=== PATIENT | female | born 1985 | race African-American/Black ===

== ENCOUNTER 2017-12-23 08:41 | Emergency (ER) | payer OTHER ==
[~2017-12-23] VITALS: Ht 160 cm; Wt 65.0 kg
[~2017-12-23 08:41] MED LIST: ALBU2.5V13 IH
[2017-12-23 09:38] LABS: BASOPHILS % 0.6 % (0.0-2.0); EOSINOPHILS % 1.1 % (0.0-5.0); HEMATOCRIT. 39.3 % (36.0-48.0); HEMOGLOBIN. 13.3 g/dL (12.0-16.0); LYMPHOCYTES % 18.3 % (20.0-50.0); MEAN CORPUSCULAR HEMOGLOBIN 28.7 pg (28.0-32.0); MEAN CORPUSCULAR VOLUME 85.1 fL (81.0-99.0); MEAN PLATELET VOLUME 9.3 fl (7.4-10.4); MONOCYTES % 8.4 % (2.0-8.0); NEUTROPHILS % 71.6 % (40.0-76.0); PLATELET 172 x1000/uL (130-400); RED BLOOD CELL COUNT 4.62 mill/uL (4.2-5.4); RED CELL DISTRIBUTION WIDTH 12.9 % (11.6-14.6)
[2017-12-23 09:44] LABS: CHLORIDE 104 mEq/L (98-107)
[2017-12-23] MEDS ORDERED: ONDANSETRON HCL 4MG/2ML VIAL IV STA (09:46)
[2017-12-23] MEDS ORDERED: SODIUM CHLORIDE 0.9% 1,000 ML IV ONE (09:46)
[2017-12-23 09:53] LABS: HCG SCREEN POSITIVE
[2017-12-23] MEDS ORDERED: FAMOTIDINE 20MG/2ML VIAL IV ONE (10:00)
[2017-12-23 10:05] LABS: CLARITY URINE CLEAR (CLEAR); COLOR URINE DARK YELLOW (YELLOW); KETONES URINE 2+ (NEGATIVE); LEUKOCYTE ESTERASE URINE TRACE (NEGATIVE); NITRITE URINE NEGATIVE (NEGATIVE); OCCULT BLOOD URINE NEGATIVE (NEGATIVE); PH URINE 7.5 (4.5-8.0); PROTEIN URINE TRACE (NEGATIVE); SPECIFIC GRAVITY URINE 1.031 (1.005-1.030)
[2017-12-23 12:09] VITALS: BP 108/74
== END 2017-12-23 12:16 | disposition home or self-care (01) ==
LOC: ER 08:57
DX: O23.41 Unspecified infection of urinary tract in pregnancy, first trimester (principal); O26.891 Other specified pregnancy related conditions, first trimester; R10.9 Unspecified abdominal pain; Z3A.08 8 weeks gestation of pregnancy; R11.2 Nausea with vomiting, unspecified
CPT/HCPCS: 36415; 76801; 76817; 80053; 81003; 81025; 83690; 84702; 84703; 85025; 96361; 96374; 96375; 99285; J2405; J3490; J7030

== ENCOUNTER 2018-01-10 15:53 | Emergency (ER) | payer OTHER ==
[~2018-01-10] VITALS: Ht 165.1 cm; Wt 62.0 kg
[2018-01-10] MEDS ORDERED: SODIUM CHLORIDE 0.9% 1,000 ML IV ONE (16:22)
[2018-01-10] MEDS ORDERED: METOCLOPRAMIDE HCL 10MG/2ML VIAL IV ONE (16:30)
[2018-01-10 17:04] LABS: CHLORIDE 103 mEq/L (98-107)
[2018-01-10 17:05] LABS: BASOPHILS % 0.2 % (0.0-2.0); EOSINOPHILS % 0.5 % (0.0-5.0); HEMATOCRIT. 37.1 % (36.0-48.0); HEMOGLOBIN. 12.4 g/dL (12.0-16.0); MEAN CORPUSCULAR HEMOGLOBIN 28.5 pg (28.0-32.0); MEAN PLATELET VOLUME 9.2 fl (7.4-10.4); MONOCYTES % 7.2 % (2.0-8.0); NEUTROPHILS % 77.1 % (40.0-76.0); PLATELET 189 x1000/uL (130-400); RED BLOOD CELL COUNT 4.37 mill/uL (4.2-5.4); RED CELL DISTRIBUTION WIDTH 12.6 % (11.6-14.6)
[2018-01-10 17:27] LABS: B-HCG QUANTITATIVE 133485 mIU/mL (<3)
[2018-01-10 17:45] LABS: CLARITY URINE CLEAR (CLEAR); COLOR URINE YELLOW (YELLOW); KETONES URINE 4+ (NEGATIVE); LEUKOCYTE ESTERASE URINE NEGATIVE (NEGATIVE); NITRITE URINE NEGATIVE (NEGATIVE); OCCULT BLOOD URINE NEGATIVE (NEGATIVE); PH URINE 5.5 (4.5-8.0); PROTEIN URINE NEGATIVE (NEGATIVE); SPECIFIC GRAVITY URINE 1.033 (1.005-1.030)
[2018-01-10 18:40] VITALS: BP 112/66
== END 2018-01-10 19:00 | disposition home or self-care (01) ==
LOC: ER 16:05
DX: O21.0 Mild hyperemesis gravidarum (principal); O26.851 Spotting complicating pregnancy, first trimester; O26.891 Other specified pregnancy related conditions, first trimester; R10.30 Lower abdominal pain, unspecified; O99.511 Diseases of the respiratory system complicating pregnancy, first trimester; J45.909 Unspecified asthma, uncomplicated; Z3A.01 Less than 8 weeks gestation of pregnancy
CPT/HCPCS: 36415; 76801; 80053; 81003; 84702; 85025; 96361; 96374; 99285; J2765; J7030; Z7610

== ENCOUNTER 2018-01-12 23:41 | Emergency (ER) | payer OTHER ==
[~2018-01-12] VITALS: Ht 165.1 cm; Wt 68.0 kg
[2018-01-13] MEDS ORDERED: ONDANSETRON 4MG ODT PO ONE (02:45)
[2018-01-13] MEDS ORDERED: ACETAMINOPHEN 325MG TABLET PO ONE (02:45)
[2018-01-13 03:42] VITALS: BP 102/50
== END 2018-01-13 03:39 | disposition home or self-care (01) ==
LOC: ER 23:41
DX: O20.0 Threatened abortion (principal); O26.891 Other specified pregnancy related conditions, first trimester; M54.2 Cervicalgia; R11.0 Nausea; J45.909 Unspecified asthma, uncomplicated; Z98.890 Other specified postprocedural states; Z3A.08 8 weeks gestation of pregnancy; V43.62XA Car passenger injured in collision with other type car in traffic accident, initial encounter; Y93.89 Activity, other specified; Y92.488 Other paved roadways as the place of occurrence of the external cause
CPT/HCPCS: 76801; 81025; 99284; Q0162

== ENCOUNTER 2018-02-28 10:36 | Emergency (ER) | payer OTHER ==
[~2018-02-28] VITALS: Ht 165.1 cm; Wt 71.0 kg
[2018-02-28 12:37] LABS: CLARITY URINE CLOUDY (CLEAR); COLOR URINE YELLOW (YELLOW); KETONES URINE NEGATIVE (NEGATIVE); LEUKOCYTE ESTERASE URINE NEGATIVE (NEGATIVE); NITRITE URINE NEGATIVE (NEGATIVE); OCCULT BLOOD URINE NEGATIVE (NEGATIVE); PROTEIN URINE NEGATIVE (NEGATIVE); SPECIFIC GRAVITY URINE 1.019 (1.005-1.030); UROBILINOGEN URINE 0.2 E.U./dL (0.2-1.0)
[2018-02-28 14:54] LABS: CHLORIDE 104 mEq/L (98-107)
[2018-02-28 15:00] LABS: BASOPHILS % 0.2 % (0.0-2.0); EOSINOPHILS % 0.7 % (0.0-5.0); HEMATOCRIT. 32.9 % (36.0-48.0); HEMOGLOBIN. 11.2 g/dL (12.0-16.0); LYMPHOCYTES % 16.1 % (20.0-50.0); MEAN CORPUSCULAR HEMOGLOBIN 29.2 pg (28.0-32.0); MEAN CORPUSCULAR VOLUME 85.5 fL (81.0-99.0); MEAN PLATELET VOLUME 9.1 fl (7.4-10.4); MONOCYTES % 7.2 % (2.0-8.0); NEUTROPHILS % 75.8 % (40.0-76.0); PLATELET 147 x1000/uL (130-400); RED BLOOD CELL COUNT 3.85 mill/uL (4.2-5.4)
[2018-02-28 15:02] VITALS: BP 124/69
[2018-02-28 15:19] LABS: B-HCG QUANTITATIVE 24422 mIU/mL (<3)
== END 2018-02-28 15:05 | disposition home or self-care (01) ==
LOC: ER 10:53
DX: O00.81 Other ectopic pregnancy with intrauterine pregnancy (principal); O99.512 Diseases of the respiratory system complicating pregnancy, second trimester; J45.909 Unspecified asthma, uncomplicated; Z98.890 Other specified postprocedural states; Z3A.16 16 weeks gestation of pregnancy
CPT/HCPCS: 36415; 76805; 80053; 81003; 81025; 84702; 85025; 99285

== ENCOUNTER 2018-05-18 19:47 | Observation (INO) | payer OTHER ==
[2018-05-18] MEDS ORDERED: LACTATED RINGERS 1,000 ML IV SCH (20:12)
[2018-05-18] MEDS ORDERED: PREN1TAB78 MT (20:14)
[2018-05-18 20:51] LABS: CLARITY URINE CLOUDY (CLEAR); COLOR URINE YELLOW (YELLOW); KETONES URINE NEGATIVE (NEGATIVE); LEUKOCYTE ESTERASE URINE NEGATIVE (NEGATIVE); NITRITE URINE NEGATIVE (NEGATIVE); OCCULT BLOOD URINE NEGATIVE (NEGATIVE); PROTEIN URINE TRACE (NEGATIVE); SPECIFIC GRAVITY URINE 1.018 (1.005-1.030); UROBILINOGEN URINE 0.2 E.U./dL (0.2-1.0)
[2018-05-18] MEDS ORDERED: ACETAMINOPHEN 500MG TABLET PO NR (21:00)
== END 2018-05-18 22:00 | disposition home or self-care (01) ==
LOC: L&D 19:47
PROVIDERS: ADMIT Obstetrics & Gynecology; ATTEND Obstetrics & Gynecology
DX: O62.9 Abnormality of forces of labor, unspecified (principal); O26.892 Other specified pregnancy related conditions, second trimester; M54.9 Dorsalgia, unspecified; Z3A.28 28 weeks gestation of pregnancy
CPT/HCPCS: 81003; 99281; G0378; 96360; 96361; J7120

== ENCOUNTER 2018-06-04 23:51 | Observation (INO) | payer OTHER ==
[~2018-06-04] VITALS: Ht 165.1 cm; Wt 79.8 kg
[~2018-06-04 23:51] MED LIST changes: +PREN1TAB78 MT
[2018-06-05] MEDS ORDERED: LACTATED RINGERS 1,000 ML IV ONE (00:45)
[2018-06-05] MEDS ORDERED: TERBUTALINE SULFATE 1MG/ML VIAL SUBCUT PRN (00:45)
[2018-06-05] MEDS ORDERED: CEFAZOLIN 2,000 MG in DEXT 5% WATER 100 ML IV NR (00:45)
[2018-06-05 00:52] LABS: CLARITY URINE CLOUDY (CLEAR); COLOR URINE YELLOW (YELLOW); KETONES URINE NEGATIVE (NEGATIVE); LEUKOCYTE ESTERASE URINE NEGATIVE (NEGATIVE); NITRITE URINE NEGATIVE (NEGATIVE); OCCULT BLOOD URINE NEGATIVE (NEGATIVE); PH URINE 6.5 (4.5-8.0); PROTEIN URINE NEGATIVE (NEGATIVE); SPECIFIC GRAVITY URINE 1.015 (1.005-1.030)
[2018-06-05 01:02] LABS: *AMPHETAMINES SCREEN URINE NEGATIVE (NEGATIVE); *BARBITURATES SCREEN URINE NEGATIVE (NEGATIVE); *BENZODIAZEPINES SCREEN URINE NEGATIVE (NEGATIVE); *COCAINE SCREEN URINE NEGATIVE (NEGATIVE); METHADONE URINE SCREEN NEGATIVE (NEGATIVE)
[2018-06-05 01:03] LABS: CANNABINOID URINE SCREEN NEGATIVE (NEGATIVE); OPIATES URINE SCREEN NEGATIVE (NEGATIVE); PHENCYCLIDINE URINE SCREEN NEGATIVE (NEGATIVE)
== END 2018-06-05 03:30 | disposition home or self-care (01) ==
LOC: L&D 23:51
PROVIDERS: ADMIT Obstetrics & Gynecology; ATTEND Obstetrics & Gynecology
DX: O62.9 Abnormality of forces of labor, unspecified (principal); Z3A.31 31 weeks gestation of pregnancy
CPT/HCPCS: 80305; 81003; 96365; 96372; 99281; G0378; J0690; J3105; 96360; J7060

== ENCOUNTER 2018-06-21 06:45 | Observation (INO) | payer OTHER ==
[~2018-06-21] VITALS: Ht 165.1 cm; Wt 82.6 kg
[2018-06-21] MEDS ORDERED: [UNRECOGNIZED DRUG - REMARK] IV ONE ×2 (07:30)
[2018-06-21] MEDS ORDERED: LACTATED RINGERS 1,000 ML IV SCH (07:30)
[2018-06-21] MEDS ORDERED: ONDANSETRON HCL 4MG/2ML INJ IV NR (07:30)
[2018-06-21] MEDS ORDERED: CITRIC ACID/SODIUM CITRATE SOLN 30ML UDC PO NR (07:30)
[2018-06-21] MEDS ORDERED: MVI, ADULT NO.1 10 ML in DEXT 5%/LACTATED RINGERS 1,000 ML IV ONE ×2 (07:45)
== END 2018-06-21 12:00 | disposition home or self-care (01) ==
LOC: L&D 06:45 → UNDOADMOB 07:27
PROVIDERS: ADMIT Specialist; ATTEND Specialist
DX: O21.2 Late vomiting of pregnancy (principal); O26.893 Other specified pregnancy related conditions, third trimester; R12 Heartburn; N89.8 Other specified noninflammatory disorders of vagina; Z3A.33 33 weeks gestation of pregnancy
CPT/HCPCS: 96365; 96366; 96375; 99281; G0378; J2405; J3490; J7121; 96360; 96361; J7120